=== PATIENT | male | born 1945 | race Caucasian/White ===

== ENCOUNTER 2018-05-13 13:15 | Emergency (ER) | payer SELFPAY ==
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
[2018-05-13 16:45] VITALS: BP 140/68
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
== END 2018-05-13 16:44 | disposition home or self-care (01) ==
LOC: ED 13:15
DX: S16.1XXA Strain of muscle, fascia and tendon at neck level, initial encounter (principal); V87.7XXA Person injured in collision between other specified motor vehicles (traffic), initial encounter; Y92.9 Unspecified place or not applicable; Y93.9 Activity, unspecified; Y99.9 Unspecified external cause status
CPT/HCPCS: 72040; 72125; 99283